=== PATIENT | male | born 1940 | race Caucasian/White ===

== ENCOUNTER 2020-07-01 08:43 | Outpatient (REF) | payer MEDICARE, MEDICAID, SELFPAY ==
--- NOTE | 2020-07-01 14:25 | MHC.AU.P13 ---
Adult Audiological Evaluation Date of Visit: 07/01/20 Reason for Appointment: Decreased hearing in the left ear. Does patient feel they have a hearing loss?: Yes If Yes, Which Ear?: Left Ear When Was Hearing Difficulty First Noticed?: When serving in the . Has hearing been tested previously?: Yes Previous Hearing Test Results: [facility], likely a screening. 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 Left Ear: Description of Hearing: Normal hearing from 250-1000 Hz, sloping to a mild sensorineural hearing loss at 2000 Hz, a moderate sensorineural heairng loss at 3000 Hz, a moderately severe mixed hearing loss at 9141-8058 Hz, and a profound hearing loss at 8000 Hz. Speech Recognition Threshold (SRT): Method Used: Monitored Live Voice Stimuli Used: Spondee Words Right Ear: 15 dBHL Left Ear: 20 dBHL Word Discrimination: Method: Recorded Lists Word Lists Used: NU-6 Right Ear: 92% at 55 dBHL Left Ear: 100% at 65 dBHL Recommendations: Recommendations: Audiological re-evaluation in one year. Referral to Ear, Nose, and Throat is recommended. Recommendations (Other): Given asymmetric hearing, a referral to ENT is recommended. Patient would likely benefit from a hearing aid in the left ear, though he states he is not interested in hearing aids at this time. He is welcome to return for a hearing aid evaluation to discuss hearing aids further following his visit with ENT. Patient also needs wax removed from right ear. Diagnosis: Primary Diagnosis: H90.3 Bilateral Sensorineural Hearing Loss Secondary Diagnosis: H93.13 Tinnitus, Bilateral Services Performed: Services Performed: Comprehensive Audiological Evaluation (CPT 52141) Tympanometry (CPT 02815) Signature: Provider: Albert Perry, CCC-A
== END 2020-07-01 08:44 | disposition home or self-care (01) ==
LOC: HO.SH 08:43
PROVIDERS: Visit Provider Internal Medicine
DX: H90.3 Sensorineural hearing loss, bilateral (principal); H93.13 Tinnitus, bilateral
CPT/HCPCS: 92557; 92567

== ENCOUNTER 2023-10-18 13:00 | Outpatient (RCR) | payer MEDICARE, MEDICAID, SELFPAY ==
--- NOTE | 2023-10-19 15:30 | MHC.SP.ADU ---
Referring provider: Dr. Mireille Berumen Reason for Referral: Slurred Speech Type of Treatment: 49082 Evaluation Speech Sound Production WITH Language Date of Plan of Treatment: 10/18/23 Onset of Symptoms/Illness: 10/18/23 Date Treatment Started: 10/18/23 Medical Diagnosis: Schizoaffective Disorder Primary Speech Language Diagnosis: F80.0 Specific developmental disorders of speech and language History Mr. Saenz is an 84 year-old gentleman referred by his PCP with concerns of slurred speech. Per Pt, my f's and my t's sound the same , referring to a /th/ sound replacement. He arrives with his peer client technical support associate from his half-way. Medcal history includes; Schizoaffective disorder, Postraumatic stress disorder, Oropharyngeal dysphagia, Major depressive disorder, Anemia, DM2, HTN, Dependent for walking, and Lower back pain. Social History: Employment Status: Unemployed Highest level of education obtained: Unknown/Unable to report Current Living Situation: Assistive Devices in use: Walker Comment: Uses rollator walker Past Speech Language Therapy: Unknown Other Therapies Seen in Current Calendar Year: Unknown Other: Swallowing History: Dysphagia Specific: Within Functional Limits Comments: Pre-eval Risk for Aspiration: Pre-evaluation Dietary Consistencies: Regular Pre-eval Liquid Intake: Thin Pre-eval Medication Intake: Whole with Liquid Reported Speech, Language, Cognition difficulties: Cognition Comments: Pt reports limited education level. He was reportedly institutionalized as a child and never received a formal high school education. His PTSD is reportedly from his time in the [facility] system. He spent many years in a care home, but is now in a half-way. Quality of Life: Patient Stated Goal of Speech-Language Therapy: I want to work on my speech. Assessment Speech Production: Articulate Dysarthric Slurred Clinical Impression: Impaired Observations: Pt has imprecise articulatory contacts. He reports it was made worse when he lost his dentures. When asked, he has no plans to get another set made. Equally impactful to his intelligibility is poor breath support. He will begin speaking faster and quieter at the end of a breath group. Informal Voice Assessment: Voice Loudness: Mildly Soft/Quiet Voice Nasal Resonance: Normal Voice Oral Resonance: Normal Voice Phonatory-based Quality: Normal Voice Pitch: Normal Clinical Impression: Intact Tests of Speech & Lang Adults: Clinical Impression: Did Not Test Tests of Cognition: RBANS Clinical Impression: Impaired Observations: R-CAMPOS Kat participated in the Repeatable Battery for the Assessment of Neuropsychological Status (RBANS). His scores are reported as follows: I.) Immediate Memory Index: 65 Ia.) List Learning: -- Scaled Score: 2 Ib.) Story Memory: -- Scaled Score: 6 II.) Visuospatial/Constructional Index: 75 IIa.) Figure/Copy: -- Scaled Score: 4 IIb.) Line Orientation: -- Percentile Group: 17-25 III.) Language Index: 86 IIIa.) Picture Naming: -- Percentile Group: >75 IIIb.) Semantic Fluency: -- Scaled Score: 4 IV.) Attention Index: 64 Star.) Digit Span: -- Scaled Score: 6 IVb.) Coding: -- Scaled Score: 3 V.) Delayed Memory Index: 75 Va.) List Recall: -- Percentile Group: 17-25 Vb.) List Recognition: -- Percentile Group: 3-9 Vc.) Story Recall: -- Scaled Score: 8 Vd.) Figure Recall: -- Scaled Score: 7 Total Scale Score: 66 (%ile: 1) SUMMARY: Please note, these scores should be interpreted with caution given his uncertain educational background. Supplemental testing with the RBANS informs that he will require additional cues and support from caregivers to participate in treatment. Impressions and Recommendations Prognosis for Improvement: Guarded Comment: Mr. Saenz presents with impaired articulation that causes him anxiety and discomfort. His potential for maximal achievement of outcomes is considerably guarded given his age. At evaluation, he and his caregiver understand this, but want to give therapy a try. Recommendation for Speech Therapy: Outpatient Speech Therapy Frequency/Duration: 1 x week x 8 weeks Date Range for Service Requested: 10/18/23 - 01/16/24 Time to Reassess: 3 months Registered Clinical Dietitian Goals: LTG1: Improve intelligibility at the conversational level. Short Term Goals: Goal # : STG1: Pt will participate in an informal screen to assess his phonetic inventory and pattern of errors. Goal Status: New Goal Goal# : STG2: Pt will practice reading sentences of increasing length with improved breath support. Goal Status: New Goal Goal # : STG3: Pt/Caregivers will be responsible for completion of weekly HEP assignments. Goal Status: New Goal Recommended Referrals to be Discussed with Primary Care Provider: Audiological Evaluation Previous history of documented hearing loss with refusal of hearing aids from 2019. Patient Education: Completed: Yes Patient/Caregiver Education: Described Results of Evaluation Patient expressed understanding of evaluation Patient agrees with goals and treatment plan Patient requires further education on strategies Family/Caregivers require further education on strategies Computer Operations Technician Clinican/Clinical Fellow: No Supervisory Statement: N/A Speech Language Pathologist: Pipe Anguiano M.A., CCC-BARMAID
== END 2023-10-20 10:59 | disposition still patient (30) ==
LOC: HO.SH 13:00
PROVIDERS: Visit Provider Internal Medicine
DX: R47.81 Slurred speech (principal)
CPT/HCPCS: 92523

== ENCOUNTER 2023-11-24 13:30 | Outpatient (RCR) | payer MEDICARE, MEDICAID, SELFPAY ==
--- NOTE | 2023-12-15 12:00 | MHC.SPEECHCO ---
Dear Provider, This is an administrative discharge for North Saenz (: 44). He was initially evaluated on 10/18/23. His goals included Speech/Articulation clarity. We worked on the /ch/ and /dj/ sounds, and he responded well. Unfortunately it was difficult to arrange transportation from his [facility] for weekly visits. We received a call from the home on 12/15/23, stating that he was refusing all appointments. Per Staff, this is a pattern he gets into. It was a pleasure working with him and the Staff members who attended his visits. Thank you for the opportunity to work with him. All best, Pipe Anguiano M.A., CCC-SHOCHET Speech-Language Pathologist
== END 2023-12-15 13:04 | disposition home or self-care (01) ==
LOC: HO.SH 13:30
PROVIDERS: Visit Provider Internal Medicine
DX: R47.81 Slurred speech (principal); R47.1 Dysarthria and anarthria
CPT/HCPCS: 92507